=== PATIENT | female | born 1945 | race Caucasian/White ===

== ENCOUNTER 2020-03-28 09:34 | Day surgery (SDC) | payer MEDICARE, OTHER ==
[~2020-03-28] VITALS: Ht 162.6 cm; Wt 96.6 kg
[~2020-03-28 09:34] MED LIST: CYAN100 PO; HYDCHL25 PO; MULVITMIND PO; NITR100CA PO; PHENA100 PO; PYRI100 PO
[2020-03-28] MEDS ORDERED: VITAMIN D325 MC3 PO (10:00)
[2020-03-28] MEDS ORDERED: MULTIPLE VITAM1 EACH PO (10:01)
[2020-03-28] MEDS ORDERED: CALTRATE 600+D1 EAC1 PO (10:02)
--- NOTE | 2020-03-28 10:54 | NUR ---
History, Chart, Medications and Allergies reviewed before start of procedure. Pre-Op teaching done. Pt verbalizes understanding.
--- NOTE | 2020-03-28 17:21 | NUR ---
PT ARRIVED TO THE UNIT AT APPROXIMATELY 1610. PT IS ALERT AND ORIENTED. SHE IS TOLERATING PO. VSS. WILL CONTINUE TO MONITOR.
--- NOTE | 2020-03-28 18:36 | NUR ---
SHIFT SUMMARY PT IS POD#0 FROM [facility] WITH DR. SAUNDERS. PAIN HAS BEEN MANAGED WITH PO PAIN MEDICATION. PT IS ABLE TO MOVE HER EXTREMITIES BUT ARRIVED TO THE FLOOR TO LATE FOR THERAPY. PT IS TOLERATING PO WELL. VSS. WILL MONITOR UNTIL REPORT TO ONCOMING RN.
[2020-03-29 04:42] LABS: BASOPHILS ABSOLUTE AUTO 0.05 K/mm3 (0.00-0.23); BASOPHILS PERCENT AUTO 0 % (0-2); EOSINOPHILS ABSOLUTE AUTO 0.09 K/mm3 (0.00-0.68); EOSINOPHILS PERCENT AUTO 1 % (0-6); Hematocrit 35.3 % (33.0-51.0); IMMATURE GRAN ABSOLUTE AUTO 0.04 K/mm3 (0.00-0.10); IMMATURE GRAN PERCENT AUTO 0 % (0-1); LYMPHOCYTES ABSOLUTE AUTO 3.84 K/mm3 (0.84-5.20); LYMPHOCYTES PERCENT AUTO 29 % (21-46); MONOCYTES ABSOLUTE AUTO 0.99 K/mm3 (0.16-1.47); MONOCYTES PERCENT AUTO 8 % (4-13); Mean Corpuscular HGB 30.7 pg (26.0-34.0); Mean Corpuscular Volume 90 fL (80-100); NEUTROPHILS ABSOLUTE AUTO 8.06 K/mm3 (1.96-9.15); NEUTROPHILS PERCENT AUTO 62 % (41-73); Platelet Count 221 K/mm3 (150-400); RDW Coefficient Variation 12.3 % (11.7-14.2); RDW Standard Deviation 40.3 fL (35.1-46.3); Red Blood Cell Count 3.91 M/mm3 (3.80-5.20); White Blood Cell Count 13.07 K/mm3 (4.00-11.30)
[2020-03-29 05:08] LABS: Anion Gap 6 mmol/L (6-16); Blood Urea Nitrogen 14 mg/dL (8-24); Bun/Creatinine Ratio 20.2 (12.0-20.0); CO2, Blood 28 mmol/L (21-32); Calcium, Blood 8.2 mg/dL (8.5-10.1); Chloride, Blood 108 mmol/L (98-108); Creatinine, Blood 0.69 mg/dL (0.40-1.00); Glomerular Filtration Rate >60 (60-); Glucose, Blood 110 mg/dL (70-99); Magnesium, Blood 2.1 mg/dL (1.6-2.4); Potassium, Blood 3.3 mmol/L (3.5-5.5); Sodium, Blood 142 mmol/L (136-145)
--- NOTE | 2020-03-29 05:49 | NUR ---
SHIFT SUMMARY LYING IN SEMI FOWLERS WITH EYES CLOSED. HAS AMBULATED TO BATHROOM SEVERAL TIMES THIS SHIFT, TOLERATED WELL. MEDICATED FOR PAIN WITH SCHEDULED AND PRN PAIN MEDS. POLAR MATILDE IN PLACE. AQUACEL TO RIGHT HIP IS C/D/I. WILL WORK WITH PT/OT TODAY. DENIES PAIN, DISCOMFORT, OR FURTHER NEEDS. SAFETY MEASURES IN PLACE. WILL CONTINUE TO MONITOR AND GIVE HAND OFF TO ONCOMING SHIFT USING SBAR.
[2020-03-29] MEDS ORDERED: ACET500 PO (11:55)
[2020-03-29] MEDS ORDERED: Aspir 8181 MG PO (11:55)
[2020-03-29] MEDS ORDERED: OXYC5 PO (11:56)
--- NOTE | 2020-03-29 15:35 | NUR ---
DISCHARGE NOTES PT DC'D VIA W/C WITH KAY BEAL AT 1535, ALERT AND ORIENTED X 4. PT REPORTS PAIN R HIP, 4/10 PAIN LEVEL. PT DENIES NUMBNESS, DENIES TINGLING SENSTATION, DENIES SOB, DENIES CHEST PAIN AND PRESSURE AND DIZZINESS. PT TOLERATION PO INTAKE WELL, SHE DENIES NAUSEA AND VOMITING. PT IS CLEARED BY PHYSICAL THERAPY. PT DISCHARGE INSTRUCTIONS WERE DISCUSSED, PT IS RECEPTIVE WITH SIGNIFICANT OTHER ON BEDSIDE. PT HAS 1 HAND CARRY RX GIVEN TO PT FOR PAIN. PT WAS ALSO ADVISE TO TAKE ASA FOR 6 WEEKS. PT HAS PASSING FLATUS, REPORTS 1 SMALL DIME SIZE BM THIS MORNING. PT ADVISE TO KEEP WEARING [place]. SHE WAS INSTRUCTED TO F/U WITH DR SAUNDERS IN 2 WEEKS, CALL HER OFFICE FOR WORSENING SX AND ANY SIGNS OF INFECTION.
== END 2020-03-29 16:00 | disposition home or self-care (01) ==
LOC: ORSCMMR 09:34 → ORD 14:00 → SURS 16:41 → ORSCMMR 03-29 16:00
PROVIDERS: Orthopaedic Surgery
PROC: 0SR90JA Replacement of Right Hip Joint with Synthetic Substitute, Uncemented, Open Approach (ICD-10-PCS; principal; 2020-03-28 14:00)
DX: M16.11 Unilateral primary osteoarthritis, right hip (principal); Z23 Encounter for immunization; I10 Essential (primary) hypertension; G47.33 Obstructive sleep apnea (adult) (pediatric); E66.01 Morbid (severe) obesity due to excess calories; Z68.36 Body mass index [BMI] 36.0-36.9, adult; Z79.899 Other long term (current) drug therapy
CPT/HCPCS: 36415; 72170; 80048; 83735; 85025; 88300; 97110; 97116; 97161; 97530; A9270; A9270-GY; C1713; C1776; J0171; J0690; J0735; J1885; J2250; J2704; J2795; J7120; Q2038

== ENCOUNTER → 2021-12-22 | Outpatient (CLI) | payer MEDICARE, OTHER ==
[~2021-12-22] MED LIST changes: +ACET500 PO; +Aspir 8181 MG PO; +CALTRATE 600+D1 EAC1 PO; +MULTIPLE VITAM1 EACH PO; +OXYC5 PO; +VITAMIN D325 MC3 PO
[2021-12-22 12:01] LABS: Source, Urine Clean Catch
[2021-12-22 13:23] LABS: Appearance, Urine Hazy (Clear); Bilirubin, Urine Neg (Neg); Blood, Urine 1+ (Neg); Color, Urine Yellow (P-Yellow); Glucose Qualitative, Urine Neg (Neg); Ketones, Urine Neg (Neg); Leukocyte Esterase, Urine 1+ (Neg); Nitrite, Urine Pos (Neg); Protein, Urine 1+ (Neg); Specific Gravity, Urine 1.015 (1.003-1.022); Urobilinogen, Urine 1+ (Normal)
[2021-12-22 14:46] LABS: Bacteria Many /hpf; Squamous Epithelial Cells Few /hpf (Few)
== END | disposition home or self-care (01) ==
LOC: LAB SHORT 11:59 → LAB 11:59
PROVIDERS: Nurse Practitioner Family
DX: N39.0 Urinary tract infection, site not specified (principal)
CPT/HCPCS: 81001; 87077; 87086; 87186

== ENCOUNTER → 2023-08-06 | Outpatient (CLI) | payer MEDICARE, OTHER | END | disposition home or self-care (01) | LOC: LAB SHORT 14:48 → LAB 14:48 | DX: C44.619 Basal cell carcinoma of skin of left upper limb, including shoulder (principal) | CPT/HCPCS: 88305 ==